=== PATIENT | female | born 1945 | race Caucasian/White ===

== ENCOUNTER 2024-06-16 03:54 | Inpatient (IN) | payer OTHER, MEDICAID, MEDICARE ==
[~2024-06-16] VITALS: Ht 160 cm; Wt 100.7 kg
[2024-06-16] VITALS (8 sets, daily range): BP systolic 122–156; BP diastolic 70–96; PULSE 86–102; RESP 9–20; TEMP 36.1–36.7; O2SAT 96–100
[2024-06-16 05:01] LABS: HEMATOCRIT. 27.3 % (36.0-48.0); HEMOGLOBIN. 8.9 g/dL (12.0-16.0); MEAN CORPUSCULAR HEMOGLOBIN 28.1 pg (28.0-32.0); MEAN CORPUSCULAR HGB CONC 32.5 g/dL (31.0-37.0); MEAN CORPUSCULAR VOLUME 86.4 fL (81.0-99.0); MEAN PLATELET VOLUME 7.9 fl (7.4-10.4); PLATELET 230 x1000/uL (130-400); RED BLOOD CELL COUNT 3.16 mill/uL (4.2-5.4); RED CELL DISTRIBUTION WIDTH 18.6 % (11.6-14.6); WHITE BLOOD COUNT 8.3 x1000/uL (4.5-11.0)
[2024-06-16 05:29] LABS: CHLORIDE 99 mEq/L (98-107); POTASSIUM 4.3 mEq/L (3.5-5.1); SODIUM 133 mEq/L (136-145)
[2024-06-16 05:30] LABS: CALCIUM 8.3 mg/dL (8.7-10.4); CARBON DIOXIDE 29 mEq/L (21-32)
[2024-06-16 05:35] LABS: GLUCOSE 236 mg/dL (70-105); UREA NITROGEN BLOOD 71 mg/dL (9-23)
[2024-06-16 05:38] LABS: TROPONIN I HIGH SENSITIVITY 75 ng/L (3.0-34)
[2024-06-16 05:40] LABS: DIFFERENTIAL COMMENT 1
[2024-06-16 05:41] LABS: PLATELET ESTIMATE NORMAL
[2024-06-16] MEDS: FUROSEMIDE 40MG/4ML VIAL IVP ONE (05:49)
[2024-06-16] MEDS: MORPHINE SULFATE 4 MG/ML INJ (FOR IV/IM USE) IV ONE (05:50)
[2024-06-16 06:46] LABS: ALANINE AMINOTRANSFERASE 19 IU/L (10-49); ALBUMIN 3.4 g/dL (3.2-4.8); ASPARTATE AMINOTRANSFERASE 18 IU/L (<34)
[2024-06-16 06:47] LABS: BILIRUBIN DIRECT 0.1 mg/dL (<=3.0); BILIRUBIN TOTAL 0.3 mg/dL (0.1-1.0); PROTEIN TOTAL 6.4 g/dL (6.0-8.3)
[2024-06-16] MEDS: ONDANSETRON HCL 4MG/2ML INJ IV ONE (07:00)
[2024-06-16] MEDS ORDERED: IOHEXOL-350 100 ML BOTTLE ONE (07:08)
[2024-06-16 08:15] LABS: TROPONIN I HIGH SENSITIVITY 79 ng/L (3.0-34)
[2024-06-16 08:15] LABS: TROPONIN I HIGH SENSITIVITY 62 ng/L (3.0-34)
[2024-06-16] MEDS ORDERED: DOCU-422 PO (09:19)
[2024-06-16] MEDS ORDERED: FAMO20TA8 PO (09:19)
[2024-06-16] MEDS ORDERED: SITA25TA3 PO (09:19)
[2024-06-16] MEDS ORDERED: FERR325T6 PO (09:19)
[2024-06-16] MEDS ORDERED: FURO40TA5 PO (09:19)
[2024-06-16] MEDS ORDERED: ATOR40TA70 PO (09:19)
[2024-06-16] MEDS ORDERED: ASCO-339 PO (09:19)
[2024-06-16] MEDS ORDERED: HYDR25TA78 PO (09:19)
[2024-06-16] MEDS ORDERED: QUET25TA36 PO (09:19)
[2024-06-16] MEDS ORDERED: FLUO40CA49 PO (09:19)
[2024-06-16] MEDS ORDERED: APIX5TAB PO (09:19)
[2024-06-16] MEDS ORDERED: GABA300S4 PO (09:19)
[2024-06-16] MEDS: FUROSEMIDE 100MG/10ML VIAL IVP NR (10:02)
[2024-06-16] MEDS: IPRATROPIUM/ALBUTEROL 0.5-3(2.5)MG/3ML NEB HHN PRN (10:07)
[2024-06-16 10:49] LABS: BG BASE EXCESS 2.1 mmol/L (-2.0-3.0); BG CARBOXYHEMOGLOBIN 1.3 % (0.5-1.5); BG DEOXYHEMOGLOBIN 2.9 % (0.0-5.0); BG FRACTION INSPIRED OXYGEN 28; BG HCO3 ACT 29.3 mmol/L (21.0-28.0); BG OXYGEN SATURATION 97.1 % (94.0-98.0); BG OXYHEMOGLOBIN 95.8 % (94.0-98.0); BG PCO2 60.9 mmHg (32.0-45.0); BG PO2 91.7 mmHg (83.0-108.0); BG SAMPLE SITE RIGHT RADIAL; BG TOTAL HEMOGLOBIN 9.3 g/dL (12.0-16.0); BG VENT MODE NASAL CANNULA
[2024-06-16] MEDS ORDERED: ACETAMINOPHEN 325MG TABLET PO PRN (11:30)
[2024-06-16] MEDS ORDERED: IPRATROPIUM/ALBUTEROL 0.5-3(2.5)MG/3ML NEB HHN PRN (11:30)
[2024-06-16] MEDS ORDERED: MAGNESIUM/ALUMINUM HYDROXIDE/SIMETHICONE 30ML UDC PO PRN (11:30)
[2024-06-16] MEDS ORDERED: ONDANSETRON HCL 4MG/2ML INJ IV PRN (11:30)
[2024-06-16] MEDS ORDERED: DIPHENHYDRAMINE 50MG/ML VIAL IV PRN (11:30)
[2024-06-16] MEDS ORDERED: GUAIFENESIN 200MG/10ML SUGAR FREE UDC PO PRN (11:30)
[2024-06-16] MEDS ORDERED: ZOLPIDEM TARTRATE 5MG TABLET PO PRN (11:30)
[2024-06-16] MEDS: ENOXAPARIN 100MG/ML SYR SUBCUT NR (12:00)
[2024-06-16] MEDS: SODIUM CHLORIDE 0.9% 3ML FLUSH IVF SCH (14:22)
[2024-06-16 20:41] LABS: INR 1.1; PROTHROMBIN TIME 11.8 sec (9.6-11.0)
[2024-06-16 21:31] LABS: CREATINE KINASE 25 IU/L (34-145); PHOSPHORUS 4.5 mg/dL (2.5-4.9)
[2024-06-16 21:35] LABS: TROPONIN I HIGH SENSITIVITY 67 ng/L (3.0-34)
[2024-06-16] MEDS ORDERED: DEXTROSE 50% WATER 50ML SYRINGE IV PRN (22:30)
[2024-06-16 23:48] LABS: CLARITY URINE CLEAR (CLEAR); COLOR URINE YELLOW (YELLOW); GLUCOSE URINE NEGATIVE (NEGATIVE); KETONES URINE NEGATIVE (NEGATIVE); LEUKOCYTE ESTERASE URINE NEGATIVE (NEGATIVE); NITRITE URINE NEGATIVE (NEGATIVE); OCCULT BLOOD URINE NEGATIVE (NEGATIVE); PROTEIN URINE NEGATIVE (NEGATIVE); SPECIFIC GRAVITY URINE 1.014 (1.005-1.030); UROBILINOGEN URINE 0.2 E.U./dL (0.2-1.0)
[2024-06-16] MEDS: ENOXAPARIN 100MG/ML SYR SUBCUT SCH (23:54)
[2024-06-16 23:56] LABS: CREATININE URINE RANDOM 22.1 mg/dL
[2024-06-17] VITALS (13 sets, daily range): BP systolic 123–146; BP diastolic 65–88; PULSE 78–104; RESP 11–21; TEMP 35.8–36.5; O2SAT 96–100
[2024-06-17] MEDS: GABAPENTIN 300MG CAPSULE PO SCH (06:16)
[2024-06-17] MEDS: INSULIN LISPRO 100 UNITS/ML SUBCUT SCH (08:00)
[2024-06-17 08:13] LABS: CALCIUM 8.5 mg/dL (8.7-10.4); POTASSIUM 3.9 mEq/L (3.5-5.1)
[2024-06-17] MEDS: BLOOD SUGAR DIAGNOSTIC STRIP TEST SCH (08:17)
[2024-06-17 08:19] LABS: CREATININE 2.2 mg/dL (0.6-1.0)
[2024-06-17] MEDS ORDERED: FAMOTIDINE 20MG/2ML VIAL IV SCH (09:00)
[2024-06-17] MEDS ORDERED: APIXABAN 5 MG TABLET PO SCH (09:00)
[2024-06-17 10:02] LABS: TROPONIN I HIGH SENSITIVITY 69 ng/L (3.0-34)
[2024-06-17] MEDS: DOCUSATE SODIUM 100MG CAPSULE PO SCH (10:18)
[2024-06-17] MEDS: FLUOXETINE HCL 20MG CAPSULE PO SCH (10:18)
[2024-06-17] MEDS: HYDRALAZINE HCL 25MG TABLET PO SCH (10:19)
[2024-06-17] MEDS: INSULIN GLARGINE 100 UNITS/ML SUBCUT SCH (10:25)
[2024-06-17 17:55] LABS: BASOPHILS % 0.7 % (0.0-2.0); EOSINOPHILS % 2.3 % (0.0-5.0); HEMOGLOBIN. 9.1 g/dL (12.0-16.0); LYMPHOCYTES % 8.3 % (20.0-50.0); MEAN CORPUSCULAR HEMOGLOBIN 28.4 pg (28.0-32.0); MEAN CORPUSCULAR HGB CONC 31.3 g/dL (31.0-37.0); MEAN CORPUSCULAR VOLUME 90.8 fL (81.0-99.0); MEAN PLATELET VOLUME 7.9 fl (7.4-10.4); MONOCYTES % 10.1 % (2.0-8.0); NEUTROPHILS % 78.6 % (40.0-76.0); PLATELET 188 x1000/uL (130-400); RED BLOOD CELL COUNT 3.19 mill/uL (4.2-5.4); RED CELL DISTRIBUTION WIDTH 19.5 % (11.6-14.6); WHITE BLOOD COUNT 8.8 x1000/uL (4.5-11.0)
[2024-06-17] MEDS: ATORVASTATIN CALCIUM 40MG TABLET PO SCH (21:16)
[2024-06-17] MEDS: QUETIAPINE FUMARATE 25MG TABLET PO SCH (21:16)
[2024-06-17] MEDS: FAMOTIDINE 20MG TABLET PO SCH (21:17)
[2024-06-18] VITALS (15 sets, daily range): BP systolic 111–164; BP diastolic 67–98; PULSE 85–103; RESP 13–26; TEMP 36.2–37; O2SAT 92–99
[2024-06-18 07:10] LABS: *CREATININE RANDOM URINE 20.5 mg/dL (Not Estab.); MICROALBUMIN RANDOM URINE 8.9 ug/mL (Not Estab.)
[2024-06-18] MEDS: ACETAMINOPHEN 325MG TABLET PO PRN (12:04)
[2024-06-18 16:46] LABS: BG BASE EXCESS 1.6 mmol/L (-2.0-3.0); BG CARBOXYHEMOGLOBIN 0.7 % (0.5-1.5); BG DEOXYHEMOGLOBIN 0.8 % (0.0-5.0); BG FRACTION INSPIRED OXYGEN 40; BG HCO3 ACT 27.2 mmol/L (21.0-28.0); BG METHEMOGLOBIN 0.2 % (0.5-1.5); BG OXYGEN SATURATION 99.2 % (94.0-98.0); BG OXYHEMOGLOBIN 98.3 % (94.0-98.0); BG PCO2 48.2 mmHg (32.0-45.0); BG PH 7.369 (7.350-7.450); BG PO2 118.3 mmHg (83.0-108.0); BG SAMPLE SITE RIGHT RADIAL; BG TOTAL HEMOGLOBIN 8.2 g/dL (12.0-16.0); BG VENT MODE MASK - BIPAP
[2024-06-19] VITALS (15 sets, daily range): BP systolic 97–164; BP diastolic 55–88; PULSE 68–106; RESP 17–28; TEMP 36.4–36.9; O2SAT 91–99
[2024-06-19 05:44] LABS: BASOPHILS % 0.8 % (0.0-2.0); EOSINOPHILS % 3.5 % (0.0-5.0); HEMATOCRIT. 25.6 % (36.0-48.0); HEMOGLOBIN. 8.2 g/dL (12.0-16.0); LYMPHOCYTES % 10.4 % (20.0-50.0); MEAN CORPUSCULAR HEMOGLOBIN 28.3 pg (28.0-32.0); MEAN CORPUSCULAR VOLUME 88.3 fL (81.0-99.0); MEAN PLATELET VOLUME 7.9 fl (7.4-10.4); MONOCYTES % 7.6 % (2.0-8.0); NEUTROPHILS % 77.7 % (40.0-76.0); PLATELET 170 x1000/uL (130-400); WHITE BLOOD COUNT 7.1 x1000/uL (4.5-11.0)
[2024-06-19 05:56] LABS: POTASSIUM 4.8 mEq/L (3.5-5.1)
[2024-06-19 05:58] LABS: CALCIUM 8.1 mg/dL (8.7-10.4)
[2024-06-19 06:02] LABS: CREATININE 2.6 mg/dL (0.6-1.0)
[2024-06-19] MEDS: FUROSEMIDE 40MG/4ML VIAL IVP SCH (09:14)
[2024-06-19] MEDS: BISACODYL 10MG SUPP PR NR (14:14)
[2024-06-19] MEDS: CLONIDINE 0.1MG TABLET PO PRN (18:20)
[2024-06-20] VITALS (12 sets, daily range): BP systolic 93–150; BP diastolic 59–83; PULSE 74–101; RESP 15–29; TEMP 35.8–36.8; O2SAT 89–99
[2024-06-20] MEDS: METHYLPREDNISOLONE SOD SUCC 40MG/ML (ACT-O-VIAL) IV SCH (13:35)
[2024-06-20] MEDS: BUDESONIDE 0.5MG/2ML NEB HHN SCH (16:39)
[2024-06-20] MEDS: ALBUMIN HUMAN 25GM/100ML (25%) IV NR (17:35)
[2024-06-20] MEDS ORDERED: SODIUM CHLORIDE 0.9% 250 ML IV ONE (18:30)
[2024-06-20 18:37] LABS: POTASSIUM 5.2 mEq/L (3.5-5.1)
[2024-06-20 18:38] LABS: CALCIUM 8.2 mg/dL (8.7-10.4)
[2024-06-20 18:43] LABS: CREATININE 2.7 mg/dL (0.6-1.0)
[2024-06-20] MEDS: PIPERACILLIN/TAZO 3.375G/50ML IV SCH (21:14)
[2024-06-20] MEDS ORDERED: PIPERACILLIN/TAZO 3.375G/100ML 100 ML IV SCH (22:00)
[2024-06-21] VITALS (15 sets, daily range): BP systolic 113–153; BP diastolic 66–93; PULSE 66–102; RESP 17–23; TEMP 35.6–36.7; O2SAT 95–100
[2024-06-21 04:21] LABS: CLARITY URINE CLEAR (CLEAR); COLOR URINE YELLOW (YELLOW); GLUCOSE URINE NEGATIVE (NEGATIVE); KETONES URINE NEGATIVE (NEGATIVE); LEUKOCYTE ESTERASE URINE TRACE (NEGATIVE); NITRITE URINE NEGATIVE (NEGATIVE); OCCULT BLOOD URINE NEGATIVE (NEGATIVE); PH URINE 5.5 (4.5-8.0); PROTEIN URINE TRACE (NEGATIVE); SPECIFIC GRAVITY URINE 1.012 (1.005-1.030); UROBILINOGEN URINE 0.2 E.U./dL (0.2-1.0)
[2024-06-21 05:18] LABS: SQUAMOUS EPITHELIAL CELL URINE 1+ /lpf (RARE/1+)
[2024-06-21 05:20] LABS: BACTERIA URINE TRACE; RBC URINE NONE SEEN /hpf (0-2)
[2024-06-21 09:54] LABS: POTASSIUM 4.8 mEq/L (3.5-5.1)
[2024-06-21 09:55] LABS: CALCIUM 8.6 mg/dL (8.7-10.4)
[2024-06-21 10:00] LABS: CREATININE 2.8 mg/dL (0.6-1.0)
[2024-06-21] MEDS: POLYETHYLENE GLYCOL 3350 (17GM) 1 DOSE PACK PO SCH (11:47)
[2024-06-22] VITALS (14 sets, daily range): BP systolic 117–161; BP diastolic 71–101; PULSE 67–104; RESP 17–26; TEMP 36.3–37; O2SAT 96–99
[2024-06-22] MEDS: METHYLPREDNISOLONE SOD SUCC 40MG/ML (ACT-O-VIAL) IV SCH (08:48)
[2024-06-23] VITALS (16 sets, daily range): BP systolic 124–157; BP diastolic 73–104; PULSE 70–100; RESP 14–28; TEMP 36.4–37.3; O2SAT 96–100
[2024-06-23] MEDS: PREDNISONE 10MG TABLET PO SCH (09:58)
[2024-06-23] MEDS: FUROSEMIDE 40MG/4ML VIAL IVP SCH (09:59)
[2024-06-23 11:28] LABS: POTASSIUM 4.3 mEq/L (3.5-5.1)
[2024-06-23 11:29] LABS: CALCIUM 8.5 mg/dL (8.7-10.4)
[2024-06-23 11:34] LABS: CREATININE 2.4 mg/dL (0.6-1.0)
[2024-06-23 11:38] LABS: THYROID STIMULATING HORMONE 2.25 uIU/mL (0.55-4.78)
[2024-06-23 12:41] LABS: BASOPHILS % 0.3 % (0.0-2.0); EOSINOPHILS % 0.4 % (0.0-5.0); HEMATOCRIT. 26.3 % (36.0-48.0); HEMOGLOBIN. 8.5 g/dL (12.0-16.0); LYMPHOCYTES % 8.9 % (20.0-50.0); MEAN CORPUSCULAR HEMOGLOBIN 28.9 pg (28.0-32.0); MEAN CORPUSCULAR HGB CONC 32.2 g/dL (31.0-37.0); MEAN CORPUSCULAR VOLUME 89.7 fL (81.0-99.0); MONOCYTES % 8.9 % (2.0-8.0); NEUTROPHILS % 81.5 % (40.0-76.0); PLATELET 145 x1000/uL (130-400); RED BLOOD CELL COUNT 2.93 mill/uL (4.2-5.4); RED CELL DISTRIBUTION WIDTH 19.2 % (11.6-14.6); WHITE BLOOD COUNT 7.2 x1000/uL (4.5-11.0)
[2024-06-23] MEDS: PIPERACILLIN/TAZO 3.375G/50ML IV SCH (17:06)
[2024-06-24] VITALS (13 sets, daily range): BP systolic 129–159; BP diastolic 52–101; PULSE 78–99; RESP 17–25; TEMP 36.3–36.7; O2SAT 90–100
[2024-06-24 06:22] LABS: BASOPHILS % 0.1 % (0.0-2.0); EOSINOPHILS % 0.4 % (0.0-5.0); HEMATOCRIT. 25.3 % (36.0-48.0); HEMOGLOBIN. 8.3 g/dL (12.0-16.0); LYMPHOCYTES % 8.3 % (20.0-50.0); MEAN CORPUSCULAR HEMOGLOBIN 28.6 pg (28.0-32.0); MEAN CORPUSCULAR HGB CONC 32.7 g/dL (31.0-37.0); MEAN CORPUSCULAR VOLUME 87.3 fL (81.0-99.0); MEAN PLATELET VOLUME 8.2 fl (7.4-10.4); MONOCYTES % 8.1 % (2.0-8.0); NEUTROPHILS % 83.1 % (40.0-76.0); PLATELET 136 x1000/uL (130-400); RED BLOOD CELL COUNT 2.89 mill/uL (4.2-5.4)
[2024-06-24 07:02] LABS: POTASSIUM 3.7 mEq/L (3.5-5.1)
[2024-06-24 07:03] LABS: CALCIUM 8.4 mg/dL (8.7-10.4)
[2024-06-24 07:08] LABS: CREATININE 2.5 mg/dL (0.6-1.0)
[2024-06-24] MEDS: FUROSEMIDE 20MG/2ML VIAL IVP NR (16:33)
[2024-06-24 18:32] LABS: BG BASE EXCESS 3.7 mmol/L (-2.0-3.0); BG CARBOXYHEMOGLOBIN 0.5 % (0.5-1.5); BG DEOXYHEMOGLOBIN 19.2 % (0.0-5.0); BG FRACTION INSPIRED OXYGEN 21; BG HCO3 ACT 27.8 mmol/L (21.0-28.0); BG METHEMOGLOBIN 0.3 % (0.5-1.5); BG OXYGEN SATURATION 80.6 % (94.0-98.0); BG PCO2 40.3 mmHg (32.0-45.0); BG PH 7.457 (7.350-7.450); BG PO2 41.2 mmHg (83.0-108.0); BG SAMPLE SITE RIGHT RADIAL; BG TOTAL HEMOGLOBIN 10.5 g/dL (12.0-16.0); BG VENT MODE ROOM AIR
[2024-06-25] VITALS (13 sets, daily range): BP systolic 130–156; BP diastolic 70–96; PULSE 70–88; RESP 15–24; TEMP 36.3–36.6; O2SAT 91–100
[2024-06-26] VITALS (8 sets, daily range): BP systolic 129–182; BP diastolic 73–88; PULSE 60–85; RESP 16–28; TEMP 36.1–36.6; O2SAT 97–100
[2024-06-26 11:07] LABS: BASOPHILS % 0.4 % (0.0-2.0); EOSINOPHILS % 4.1 % (0.0-5.0); HEMATOCRIT. 26.6 % (36.0-48.0); HEMOGLOBIN. 8.6 g/dL (12.0-16.0); LYMPHOCYTES % 9.2 % (20.0-50.0); MEAN CORPUSCULAR HEMOGLOBIN 28.8 pg (28.0-32.0); MEAN CORPUSCULAR HGB CONC 32.4 g/dL (31.0-37.0); MEAN CORPUSCULAR VOLUME 88.7 fL (81.0-99.0); MONOCYTES % 7.8 % (2.0-8.0); NEUTROPHILS % 78.5 % (40.0-76.0); PLATELET 139 x1000/uL (130-400); RED CELL DISTRIBUTION WIDTH 19.4 % (11.6-14.6); WHITE BLOOD COUNT 9.1 x1000/uL (4.5-11.0)
[2024-06-26 11:15] LABS: CALCIUM 8.2 mg/dL (8.7-10.4)
[2024-06-26 11:19] LABS: CREATININE 2.2 mg/dL (0.6-1.0)
[2024-06-26 11:28] LABS: POTASSIUM 2.7 mEq/L (3.5-5.1)
[2024-06-26] MEDS: POTASSIUM CHLORIDE 20MEQ TABLET SR PO SCH (12:09)
[2024-06-26] MEDS: POTASSIUM CHLORIDE 20MEQ TABLET SR PO NR (13:41)
[2024-06-27] VITALS (13 sets, daily range): BP systolic 139–173; BP diastolic 67–95; PULSE 75–124; RESP 18–33; TEMP 36.1–36.7; O2SAT 89–100
[2024-06-27] MEDS: IPRATROPIUM/ALBUTEROL 0.5-3(2.5)MG/3ML NEB HHN SCH (01:13)
[2024-06-27 08:27] LABS: CHLORIDE 99 mEq/L (98-107); POTASSIUM 3.5 mEq/L (3.5-5.1); SODIUM 143 mEq/L (136-145)
[2024-06-27 08:28] LABS: CARBON DIOXIDE 34 mEq/L (21-32)
[2024-06-27] MEDS: POTASSIUM CHLORIDE 20MEQ/PACKET PO NR (12:16)
[2024-06-27] MEDS: METOPROLOL TARTRATE 25MG TABLET PO SCH (20:59)
[2024-06-27] MEDS: ENOXAPARIN 100MG/ML SYR SUBCUT SCH (21:00)
== END 2024-06-27 22:08 | disposition home health service (06) | DRG 280 ==
LOC: ER 03:54 → 8WST 05:52 → ENRESERV 06:26 → 5EST 11:13 → 8WST 06-19 16:12 → 5EST 06-19 20:26 → 6WST 06-26 04:00
PROVIDERS: ADMIT Internal Medicine; ATTEND Internal Medicine
PROC: 5A09357 Assistance with Respiratory Ventilation, Less than 24 Consecutive Hours, Continuous Positive Airway Pressure (ICD-10-PCS; principal; 2024-06-18)
PROC: 5A09357 Assistance with Respiratory Ventilation, Less than 24 Consecutive Hours, Continuous Positive Airway Pressure (ICD-10-PCS; 2024-06-19)
PROC: 5A09357 Assistance with Respiratory Ventilation, Less than 24 Consecutive Hours, Continuous Positive Airway Pressure (ICD-10-PCS; 2024-06-20)
PROC: 5A09357 Assistance with Respiratory Ventilation, Less than 24 Consecutive Hours, Continuous Positive Airway Pressure (ICD-10-PCS; 2024-06-21)
PROC: 5A09357 Assistance with Respiratory Ventilation, Less than 24 Consecutive Hours, Continuous Positive Airway Pressure (ICD-10-PCS; 2024-06-22)
PROC: 5A09357 Assistance with Respiratory Ventilation, Less than 24 Consecutive Hours, Continuous Positive Airway Pressure (ICD-10-PCS; 2024-06-23)
PROC: 5A09357 Assistance with Respiratory Ventilation, Less than 24 Consecutive Hours, Continuous Positive Airway Pressure (ICD-10-PCS; 2024-06-27)
DX: I13.0 Hypertensive heart and chronic kidney disease with heart failure and stage 1 through stage 4 chronic kidney disease, or unspecified chronic kidney disease (principal); I50.43 Acute on chronic combined systolic (congestive) and diastolic (congestive) heart failure; I21.A1 Myocardial infarction type 2; L89.153 Pressure ulcer of sacral region, stage 3; J96.21 Acute and chronic respiratory failure with hypoxia; J96.22 Acute and chronic respiratory failure with hypercapnia; E87.1 Hypo-osmolality and hyponatremia; N17.9 Acute kidney failure, unspecified; E66.2 Morbid (severe) obesity with alveolar hypoventilation; J84.9 Interstitial pulmonary disease, unspecified; J44.1 Chronic obstructive pulmonary disease with (acute) exacerbation; I48.91 Unspecified atrial fibrillation; E11.22 Type 2 diabetes mellitus with diabetic chronic kidney disease; N18.9 Chronic kidney disease, unspecified; E11.40 Type 2 diabetes mellitus with diabetic neuropathy, unspecified; F32.9 Major depressive disorder, single episode, unspecified; E11.65 Type 2 diabetes mellitus with hyperglycemia; D63.8 Anemia in other chronic diseases classified elsewhere; E78.00 Pure hypercholesterolemia, unspecified; E87.6 Hypokalemia; F41.1 Generalized anxiety disorder; Z86.73 Personal history of transient ischemic attack (TIA), and cerebral infarction without residual deficits; Z68.38 Body mass index [BMI] 38.0-38.9, adult; Z99.81 Dependence on supplemental oxygen; Z74.01 Bed confinement status; Z79.01 Long term (current) use of anticoagulants; Z90.49 Acquired absence of other specified parts of digestive tract; Z90.710 Acquired absence of both cervix and uterus
CPT/HCPCS: 36415; 36600; 71045; 71275; 73030; 74174; 76770; 80048; 80051; 80061; 80076; 81003; 82043; 82375; 82533; 82550; 82570; 82805; 82962; 83036; 83735; 83880; 83930; 83935; 84100; 84300; 84443; 84484; 85025; 93005; 93306; 93970; 93971; 94070; 94640; 94660; 94664; 98960; 99291; J1650; J1815; J1940; J2270; J2405; J2543; J2919; J7512; J7626; P9047; Q9967

== ENCOUNTER 2024-10-14 20:19 | Inpatient (IN) | payer MEDICARE, MEDICAID ==
[~2024-10-14] VITALS: Ht 162.6 cm; Wt 78.5 kg
[~2024-10-14 20:19] MED LIST: APIX5TAB PO; ASCO-339 PO; ATOR40TA70 PO; DOCU-422 PO; FAMO20TA8 PO; FLUO40CA49 PO; FURO40TA5 PO; GABA300S4 PO; HYDR25TA78 PO; METH4TAB95 MT; METO-396 MT
[2024-10-14 23:30] LABS: BASOPHILS % 1.0 % (0.0-2.0); EOSINOPHILS % 0.1 % (0.0-5.0); HEMATOCRIT. 29.2 % (36.0-48.0); HEMOGLOBIN. 9.2 g/dL (12.0-16.0); LYMPHOCYTES % 16.6 % (20.0-50.0); MEAN PLATELET VOLUME 7.2 fl (7.4-10.4); MONOCYTES % 7.8 % (2.0-8.0); NEUTROPHILS % 74.5 % (40.0-76.0); PLATELET 185 x1000/uL (130-400); RED BLOOD CELL COUNT 3.71 mill/uL (4.2-5.4); RED CELL DISTRIBUTION WIDTH 19.6 % (11.6-14.6)
[2024-10-14 23:43] LABS: CREATININE 2.4 mg/dL (0.6-1.0)
[2024-10-14 23:44] LABS: UREA NITROGEN BLOOD 36 mg/dL (9-23)
[2024-10-14 23:53] LABS: TROPONIN I HIGH SENSITIVITY 188 ng/L (3.0-34)
[2024-10-15] VITALS (8 sets, daily range): BP systolic 121–161; BP diastolic 77–93; PULSE 48–99; RESP 18–22; TEMP 35.7–36.7; O2SAT 92–100
[2024-10-15 01:40] LABS: TROPONIN I HIGH SENSITIVITY 192 ng/L (3.0-34)
[2024-10-15] MEDS: ASPIRIN 81MG TABLET PO NR (04:29)
[2024-10-15] MEDS: METOPROLOL TARTRATE 25MG TABLET PO NR (04:29)
[2024-10-15] MEDS ORDERED: ACETAMINOPHEN 325MG TABLET PO PRN (05:30)
[2024-10-15] MEDS ORDERED: ONDANSETRON HCL 4MG/2ML INJ IV PRN (05:30)
[2024-10-15] MEDS ORDERED: MAGNESIUM/ALUMINUM HYDROXIDE/SIMETHICONE 30ML UDC PO PRN (05:30)
[2024-10-15] MEDS ORDERED: CLONIDINE 0.1MG TABLET PO PRN (05:30)
[2024-10-15] MEDS ORDERED: DIPHENHYDRAMINE 50MG/ML VIAL IV PRN (05:30)
[2024-10-15] MEDS ORDERED: DEXTROSE 50% WATER 50ML SYRINGE IV PRN (05:30)
[2024-10-15] MEDS ORDERED: IPRATROPIUM/ALBUTEROL 0.5-3(2.5)MG/3ML NEB NEB PRN (05:30)
[2024-10-15] MEDS: SODIUM CHLORIDE 0.9% 3ML FLUSH IVF SCH (06:44)
[2024-10-15] MEDS: BLOOD SUGAR DIAGNOSTIC STRIP TEST SCH (07:20)
[2024-10-15] MEDS: INSULIN LISPRO 100 UNITS/ML SUBCUT SCH (07:50)
[2024-10-15] MEDS: METOPROLOL SUCCINATE 50MG ER TABLET PO SCH (09:00)
[2024-10-15] MEDS: DOCUSATE SODIUM 100MG CAPSULE PO SCH (09:52)
[2024-10-15] MEDS: FLUOXETINE HCL 20MG CAPSULE PO SCH (09:52)
[2024-10-15] MEDS: APIXABAN 5 MG TABLET PO SCH (09:52)
[2024-10-15] MEDS: HYDRALAZINE HCL 25MG TABLET PO SCH (09:53)
[2024-10-15] MEDS: INSULIN GLARGINE 100 UNITS/ML SUBCUT SCH (10:00)
[2024-10-15] MEDS: ASPIRIN 81MG TABLET PO SCH (13:46)
[2024-10-15] MEDS: FUROSEMIDE 40MG/4ML VIAL IVP SCH (13:46)
[2024-10-15] MEDS: IPRATROPIUM/ALBUTEROL 0.5-3(2.5)MG/3ML NEB HHN SCH (15:11)
[2024-10-15] MEDS: METHYLPREDNISOLONE SOD SUCC 125MG/2ML (ACT-O-VIAL) IV NR (18:01)
[2024-10-15] MEDS: ATORVASTATIN CALCIUM 40MG TABLET PO SCH (22:00)
[2024-10-15] MEDS: METHYLPREDNISOLONE SOD SUCC 40MG/ML (ACT-O-VIAL) IV SCH (22:10)
[2024-10-15] MEDS: FUROSEMIDE 20MG/2ML VIAL IVP NR (22:15)
[2024-10-16] VITALS (10 sets, daily range): BP systolic 98–138; BP diastolic 56–72; PULSE 61–113; RESP 17–22; TEMP 35.3–36.5; O2SAT 93–99
[2024-10-16] MEDS: GUAIFENESIN 200MG/10ML SUGAR FREE UDC PO PRN (00:01)
[2024-10-16] MEDS: DIGOXIN 500MCG/2ML AMP IV NR (04:22)
[2024-10-16] MEDS: IPRATROPIUM BROMIDE (0.02%) 0.5MG/2.5ML NEB HHN SCH (08:40)
[2024-10-17] VITALS (10 sets, daily range): BP systolic 100–133; BP diastolic 43–67; PULSE 67–100; RESP 18–20; TEMP 36.1–36.6; O2SAT 97–100
[2024-10-17 12:50] LABS: HEMATOCRIT. 29.1 % (36.0-48.0); HEMOGLOBIN. 9.1 g/dL (12.0-16.0); MEAN PLATELET VOLUME 7.8 fl (7.4-10.4); PLATELET 193 x1000/uL (130-400); RED BLOOD CELL COUNT 3.75 mill/uL (4.2-5.4); RED CELL DISTRIBUTION WIDTH 19.6 % (11.6-14.6)
[2024-10-17 13:00] LABS: CREATININE 2.5 mg/dL (0.6-1.0); UREA NITROGEN BLOOD 53.0 mg/dL (9-23)
[2024-10-17] MEDS: POTASSIUM CHLORIDE 20MEQ TABLET SR PO SCH (18:21)
[2024-10-17] MEDS: METHYLPREDNISOLONE SOD SUCC 40MG/ML (ACT-O-VIAL) IV SCH (21:24)
[2024-10-17] MEDS: BUDESONIDE 0.5MG/2ML NEB HHN SCH (22:22)
[2024-10-18] VITALS (9 sets, daily range): BP systolic 104–147; BP diastolic 56–76; PULSE 66–83; RESP 17–22; TEMP 36.4–36.6; O2SAT 97–99
[2024-10-18 06:34] LABS: CREATININE 2.7 mg/dL (0.6-1.0); UREA NITROGEN BLOOD 55.0 mg/dL (9-23)
[2024-10-18 13:57] LABS: BAND% 6.0 % (1.0-6.0); LYMPHOCYTES % MANUAL 7.0 % (20.0-60.0); MONOCYTES % MANUAL 2.0 % (2.0-8.0); NEUTROPHILS % MANUAL 85.0 % (45.0-75.0)
[2024-10-18 13:58] LABS: PLATELET ESTIMATE NORMAL
[2024-10-19] VITALS (10 sets, daily range): BP systolic 136–165; BP diastolic 70–82; PULSE 52–88; RESP 18–20; TEMP 36.3–36.7; O2SAT 93–100
[2024-10-19] MEDS: FUROSEMIDE 40MG/4ML VIAL IVP SCH (09:07)
[2024-10-19] MEDS: HYDRALAZINE 20MG/ML VIAL IV PRN (21:27)
[2024-10-20] VITALS (7 sets, daily range): BP systolic 116–153; BP diastolic 42–81; PULSE 60–78; RESP 15–20; TEMP 36.3–36.9; O2SAT 95–100
[2024-10-20] MEDS: ACETAMINOPHEN 325MG TABLET PO PRN (02:27)
[2024-10-20] MEDS: ZOLPIDEM TARTRATE 5MG TABLET PO PRN (02:27)
[2024-10-21] VITALS (7 sets, daily range): BP systolic 134–167; BP diastolic 66–87; PULSE 60–67; RESP 14–18; TEMP 35.8–36.7; O2SAT 95–99
[2024-10-21] MEDS: METHYLPREDNISOLONE SOD SUCC 40MG/ML (ACT-O-VIAL) IV SCH (09:09)
[2024-10-21 16:37] LABS: HEMATOCRIT. 31.9 % (36.0-48.0); HEMOGLOBIN. 10.2 g/dL (12.0-16.0); MEAN PLATELET VOLUME 7.9 fl (7.4-10.4); PLATELET 283 x1000/uL (130-400); RED BLOOD CELL COUNT 4.09 mill/uL (4.2-5.4); RED CELL DISTRIBUTION WIDTH 19.2 % (11.6-14.6)
[2024-10-21 18:24] LABS: BAND% 1.0 % (1.0-6.0); LYMPHOCYTES % MANUAL 6.0 % (20.0-60.0); MONOCYTES % MANUAL 3.0 % (2.0-8.0); NEUTROPHILS % MANUAL 90.0 % (45.0-75.0); PLATELET ESTIMATE NORMAL
== END 2024-10-21 16:50 | disposition home health service (06) | DRG 280 ==
LOC: ER 20:19 → 6WST 10-15 04:46 → EDBEDREQ 10-15 04:48 → ENRESERV 10-15 05:10
PROVIDERS: ADMIT Internal Medicine; ATTEND Internal Medicine
DX: I13.0 Hypertensive heart and chronic kidney disease with heart failure and stage 1 through stage 4 chronic kidney disease, or unspecified chronic kidney disease (principal); I50.33 Acute on chronic diastolic (congestive) heart failure; I21.A1 Myocardial infarction type 2; L89.323 Pressure ulcer of left buttock, stage 3; J96.22 Acute and chronic respiratory failure with hypercapnia; J44.1 Chronic obstructive pulmonary disease with (acute) exacerbation; I48.20 Chronic atrial fibrillation, unspecified; I48.92 Unspecified atrial flutter; N17.9 Acute kidney failure, unspecified; Z20.822 Contact with and (suspected) exposure to COVID-19; E11.22 Type 2 diabetes mellitus with diabetic chronic kidney disease; D50.9 Iron deficiency anemia, unspecified; D63.1 Anemia in chronic kidney disease; E78.00 Pure hypercholesterolemia, unspecified; F32.A Depression, unspecified; L89.220 Pressure ulcer of left hip, unstageable; F41.9 Anxiety disorder, unspecified; J44.9 Chronic obstructive pulmonary disease, unspecified; Z74.01 Bed confinement status; Z79.01 Long term (current) use of anticoagulants; Z86.73 Personal history of transient ischemic attack (TIA), and cerebral infarction without residual deficits; Z99.81 Dependence on supplemental oxygen; Z79.899 Other long term (current) drug therapy
CPT/HCPCS: 36415; 71045; 80048; 82962; 83036; 83880; 84145; 84484; 85025; 87426; 93005; 94070; 94640; 94760; 99291; A4606; J0360; J1160; J1815; J1938; J2919; J7626